=== PATIENT | female | born 1990 | race Caucasian/White ===

== ENCOUNTER 2018-06-06 21:18 | Emergency (ER) | payer OTHER ==
[~2018-06-06] VITALS: Ht 175.3 cm; Wt 113.4 kg
[2018-06-06 22:10] LABS: ABSOLUTE NEUTROPHILS 10.6 thou/uL (1.4-8.2); BASOPHILS 0.5 % (0.0-2.0); EOSINOPHILS 2.3 % (0.0-3.0); HEMATOCRIT 39.8 % (37.0-47.0); LYMPHOCYTES 18.5 % (24.0-44.0); MCH 26.5 pg (26.0-34.0); MCHC 32.6 g/dL (28.0-37.0); MCV 81.3 fL (80.0-100.0); MONOCYTES 5.2 % (1.0-8.0); PLATELET COUNT 443 thou/uL (150-400); POLYS 73.5 % (36.0-66.0); RBC 4.89 mil/uL (4.20-5.00); RDW 14.3 % (10.5-14.5); WBC 14.4 thou/uL (4.0-11.0)
[2018-06-06 22:23] LABS: ANION GAP 11 mmol/L (7-16); BUN 13 mg/dL (7-18); CALCIUM 9.1 mg/dL (8.5-10.1); CHLORIDE 104 mmol/L (98-107); CO2 26 mmol/L (21-32); CREATININE 0.8 mg/dL (0.6-1.0); GLUCOSE 106 mg/dL (74-106); SODIUM 141 mmol/L (136-145)
[2018-06-06 22:31] LABS: TROPONIN-I <0.06 ng/mL (<0.06)
[2018-06-06 23:46] LABS: URINE BILIRUBIN NEGATIVE (Negative); URINE BLOOD NEGATIVE (Negative); URINE CLARITY CLEAR; URINE COLOR YELLOW; URINE GLUCOSE-RANDOM* NEGATIVE (Negative); URINE KETONES NEGATIVE (Negative); URINE LEUKOCYTES-REFLEX NEGATIVE (Negative); URINE NITRITE-REFLEX NEGATIVE (Negative); URINE PROTEIN (DIPSTICK) NEGATIVE (Negative); URINE SPECIFIC GRAVITY >= 1.030 (1.005-1.035); URINE UROBILINOGEN 0.2 E.U./dl (0.2-1.0)
[2018-06-07 04:05] VITALS: BP 110/49
--- NOTE | 2018-06-07 12:05 | EKG ---
[address] [place] [address] ELECTROCARDIOGRAM REPORT Name: PAUL FRAUSTO Room #: DEP Buster#: [id number] Admission: 06/06/18 Attend Phys: Discharge: 06/07/18 Date of : [birth year] Report #: [id number] THIS REPORT FOR: //name// [facility] ED Test Date: 2018-06-06 Test Time: 21:35:29 Pat Name: PAUL FRAUSTO Department: Room: Gender: F Electrical Mechanic: : 1990 Requested By: Giselle Tovar Order Number: [id number] MD: Torres Hutchinson Measurements Intervals [place] Rate: 102 P: 9 [place]: 141 QRS: 34 QRSD: 104 T: 4 QT: 337 QTc: 439 Interpretive Statements Sinus tachycardia Otherwise normal tracing No previous ECG available for comparison Electronically Signed On 06-07-2018 12:04:51 [employer] by Torres Hutchinson [email or web address] <ELECTRONICALLY SIGNED> By: Torres Hutchinson MD, [facility] 06/07/18 [id number] Torres Hutchinson MD, FACC /EPI
== END 2018-06-07 04:05 | disposition home or self-care (01) ==
LOC: ER 21:18
PROVIDERS: Student in an Organized Health Care Education/Training Program
DX: R55 Syncope and collapse (principal); R59.0 Localized enlarged lymph nodes; Z88.8 Allergy status to other drugs, medicaments and biological substances

== ENCOUNTER → 2018-06-29 | Outpatient (CLI) | payer OTHER | LOC: ULTRA 08:25 | DX: E28.2 Polycystic ovarian syndrome (principal) ==

== ENCOUNTER → 2018-07-23 | Outpatient (CLI) | payer OTHER ==
--- NOTE | 2018-07-28 00:02 | SLE ---
[facility] [place] [address] POLYSOMNOGRAPHY STUDY Name: PAUL FRAUSTO Room #: [facility]#: [id number] Admission: 07/23/18 ������������������ Attend Phys: Mayur Peres MD Discharge: ������������������ Date of : [birth year] Report #: [id number] THIS REPORT FOR: //name// CC: Mayur Ceja DATE OF SERVICE: 07/24/2018 ATTENDING PHYSICIAN: David Cornell MD INDICATIONS: The patient is 27 years old who weighs 315 pounds with a BMI of 46.5. The patient has severe subjective hypersomnia with an [place] score of 18. Review of medications that were provided does not list any chronic sedatives or benzodiazepines. INTERPRETATION: The patient underwent sleep study, performed by [facility]. During the night study, the patient spent 425 minutes in bed and slept for 375 minutes with a sleep efficiency of 88%. Sleep latency was 2.8 minutes with a REM latency of 255 minutes. Overall, sleep architecture showed normal stage 1 sleep, increased stage 2 sleep, normal N3 sleep and reduced REM sleep, which is 13% of the total sleep time. During the night study, the patient had 7 obstructive apneas, no mixed or central apneas and 40 hypopneas. The patient's apnea-hypopnea index was 7.5 per hour with a REM index of 37 per hour and a supine index of 8 per hour. EKG monitoring revealed average heart rate of 69 beats per minute with a maximum 93 beats per minute, was normal sinus rhythm. No sustained arrhythmias observed. PLMS were not seen. Nocturnal oximetry study revealed an average oxygen saturation of 93% with a lowest of 69%. 12 minutes were spent in oxygen saturation of less than 89% and then the 1.4 minutes with saturation less than 79%. Due to low AHI, the patient did not meet the split night criteria for CPAP initiation. IMPRESSION: 1. 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 Total apnea-hypopnea index 7.5 per hour with a REM apnea-hypopnea index of 37 per hour. 2. Nocturnal hypoxia secondary to obstructive sleep apnea. [facility] [address] [place] [address] POLYSOMNOGRAPHY STUDY Name: LISBET,MILLER Room #: [facility]#: [id number] Admission: 07/23/18 ������������������ Attend Phys: Mayur Peres MD Discharge: ������������������ Date of : [birth year] Report #: [id number] 3. No clinically significant periodic limb movements during sleep. RECOMMENDATIONS: 1. The patient is clinically symptomatic with severe subjective hypersomnia with an [place] score of 18. I would recommend treating the patient's mild sleep apnea with either an oral appliance or a trial of CPAP titration. 2. Once the patient is treated with the above recommendations, then follow up in 4-6 weeks to assess compliance and to document clinical improvement. 3. If the patient's hypersomnia persist despite effective treatment of sleep apnea, then the patient would need further evaluation such as multiple sleep latency tests to rule out any coexisting sleep disorder such as narcolepsy or idiopathic hypersomnia. 4. Caution regarding driving until hypersomnia is resolved with the above recommendations. ��������������������������������������������� <ELECTRONICALLY SIGNED> ���������������������������������������� By: Mayur Peres MD ��������������������������������������������� 07/28/18 0002 1725 [id number] Mayur Peres MD /nt
== END ==
LOC: SLEEPLAB 07-09 10:21
DX: G47.33 Obstructive sleep apnea (adult) (pediatric) (principal); G47.34 Idiopathic sleep related nonobstructive alveolar hypoventilation